=== PATIENT | male | born 1990 | race Caucasian/White ===

== ENCOUNTER 2017-01-17 01:28 | Emergency (ER) | payer SELFPAY ==
[2017-01-17] MEDS ORDERED: SULFA/TRIMETH 800/160 (DS) TAB 1 EA TAB PO ONE (01:48)
--- NOTE | 2017-01-17 01:50 | ED.PDOC ---
History of Present Illness - General Chief Complaint: Upper Extremity Injury Stated Complaint: Multiple cuts on R hand, concerned about infection Time Seen by Provider: 01/17/17 01:28 Source: patient, RN notes reviewed, Vital Signs reviewed Exam Limitations: no limitations - History of Present Illness Initial Comments: Last night, 01/15/17, patient jumped up to grab a garage door to close it and go several small lacerations on his fingers of his R hand. He is concerned about them getting infection. No numbness, tingling, weakness or mitchell tenderness. Occurred: yesterday Pain - Upper Extremity: mild: Hand, right Method of Injury: incised Improving Factors: rest Worsening Factors: nothing Allergies/Adverse Reactions: Allergies NO KNOWN ALLERGY Allergy (Unverified 01/15/15 14:48) Home Medications: Ambulatory Orders Sulfa/Trimeth 800/160 (Ds) Tab [Bactrim DS Tab] 1 ea PO BID #14 tab 01/17/17 Review of Systems - Review of Systems Constitutional: States: no symptoms reported Respiratory: States: no symptoms reported Cardiology: States: no symptoms reported Skin: States: see HPI Neurological: States: no symptoms reported. Denies: numbness, paresthesia, tingling, weakness All other Systems: No Change from Baseline Past Medical History (General) - Patient Medical History Hx Seizures: No Hx Stroke: No Hx Dementia: No Hx Asthma: No Hx of COPD: No Hx Cardiac Disorders: No Hx Congestive Heart Failure: No Hx Pacemaker: No Hx Hypertension: No Hx Thyroid Disease: No Hx Diabetes: No Hx Gastroesophageal Reflux: No Hx Renal Disease: No Hx Cancer: No Hx of HIV: No Hx Hepatitis C: No Hx MRSA: No - Vaccination History Hx Tetanus, Diphtheria Vaccination: No Hx Influenza Vaccination: No Hx Pneumococcal Vaccination: No - Social History Hx Tobacco Use: Yes Hx Chewing Tobacco Use: No Hx Alcohol Use: Yes Hx Substance Use: No Hx Substance Use Treatment: No Hx Depression: No Hx Physical Abuse: No Hx Emotional Abuse: No Hx Suspected Abuse: No Family Medical History - Family History Mother Family History: No Known Physical Exam - Physical Exam General Appearance: Alert, Comfortable, No apparent distress, Well Developed, Well Groomed, Well Hydrated, Well Nourished Cardiovascular/Respiratory: no respiratory distress, other - Brisk capillary refill in all fingers on R hand. Elbow/Forearm Exam: normal inspection, non-tender, no evidence of injury, normal ROM Wrist Exam: normal inspection, non-tender, no evidence of injury, normal ROM Hand Exam: abrasions, laceration - superficial on palmar aspect of fingers 2-4, mild surrounding erythema. Wart on ring finger with scabbing around base., soft tissue tenderness Neuro/Tendon: normal sensation, normal motor functions, normal tendon functions Mental Status: alert, oriented x 3 Skin Exam: normal color, warm/dry Departure - Departure Clinical Impression: Abrasion of hand, right, infected Qualifiers: Encounter type: initial encounter Qualified Code(s): S60.511A - Abrasion of right hand, initial encounter Wart viral Qualifiers: Viral wart type: other viral wart Qualified Code(s): B07.8 - Other viral warts Laceration of right hand with infection Qualifiers: Encounter type: initial encounter Qualified Code(s): S61.411A - Laceration without foreign body of right hand, initial encounter Time of Disposition: 01:54 Disposition: Discharge to Home or Self Care Condition: Good Departure Forms: ED Discharge - Pt. Copy, Patient Portal Self Enrollment Instructions: DI for Abrasion, DI for Minor Laceration, DI for Cellulitis -- Adult Diet: resume usual diet Activity: increase activity as tolerated Referrals: Rajan Duncan MD [Primary Care Provider] - 1-2 Weeks Prescriptions: Sulfa/Trimeth 800/160 (Ds) Tab [Bactrim DS Tab] 1 ea PO BID #14 tab Home Medications: Ambulatory Orders Sulfa/Trimeth 800/160 (Ds) Tab [Bactrim DS Tab] 1 ea PO BID #14 tab 01/17/17 Additional Instructions: Hot soaks 2-3X/day
[2017-01-17 01:53] VITALS: TEMP 98.8
[2017-01-17 02:14] VITALS: BP 130/68; O2SAT 98
== END 2017-01-17 02:08 | disposition home or self-care (01) ==
LOC: ER 01:28
DX: S61.411A Laceration without foreign body of right hand, initial encounter (principal); L08.9 Local infection of the skin and subcutaneous tissue, unspecified; S60.410A Abrasion of right index finger, initial encounter; S60.412A Abrasion of right middle finger, initial encounter; S60.414A Abrasion of right ring finger, initial encounter; B07.8 Other viral warts; Z87.891 Personal history of nicotine dependence; W45.8XXA Other foreign body or object entering through skin, initial encounter; Y92.9 Unspecified place or not applicable

== ENCOUNTER → 2017-04-11 | Outpatient (CLI) | payer SELFPAY ==
--- NOTE | 2017-04-12 14:20 | RAD ---
EXAM DESCRIPTION: Chest,2 Views CLINICAL HISTORY: 26 years,Male,Unspecified abnormalities of heart beat, COMPARISON: January 27, 2008 FINDINGS: There are no consolidations. No effusions. No pneumothoraces. No nodules. Bony elements unremarkable for age. IMPRESSION: Unremarkable chest for age stable Electronically signed by: Isidro Cooper MD 04/12/2017 2:19 PM CDT
== END | disposition home or self-care (01) ==
LOC: LAB.O 10:23
PROVIDERS: ATTEND Nurse Practitioner Family
DX: Z00.00 Encounter for general adult medical examination without abnormal findings (principal); I10 Essential (primary) hypertension; R00.9 Unspecified abnormalities of heart beat; Z72.0 Tobacco use